=== PATIENT | male | born 2000 | race Caucasian/White ===

== ENCOUNTER → 2021-11-04 | Outpatient (CLI) | payer OTHER, SELFPAY | END | disposition home or self-care (01) | LOC: LABSPEC 09:51 | PROVIDERS: Referring Provider Physician Assistant Surgical; Visit Provider Physician Assistant Surgical | DX: R05.9 Cough, unspecified (principal) | CPT/HCPCS: 87635; U0005; U0003 ==

== ENCOUNTER 2025-09-13 16:57 | Emergency (ER) | payer SELFPAY ==
[2025-09-13 16:58] VITALS: BP 92/62; PULSE 106; RESP 18; TEMP 36.1; O2SAT 100; BMI 18.2
[2025-09-13] MEDS: 0.9% Normal Saline (1000mL) 1,000 ML 1000 ML IV ×2 (17:20→18:41)
[2025-09-13 17:31] VITALS: BP 115/45; BP 162/114; PULSE 101; PULSE 99
[2025-09-13] MEDS: Famotidine 200 MG/20 ML MDV 20 MG in 0.9% Normal Saline (Pres. free 8 ML 300 MG IV (17:46)
[2025-09-13 18:05] LABS: Anion Gap 15 (5-15); BUN 15 mg/dL (4-19); BUN/Creat Ratio 15.8 RATIO (10-20); Calcium,Total 9.9 mg/dL (7.6-11.0); Carbon Dioxide 20.6 mmol/L (21.0-32.0); Chloride 102 mmol/L (98-108); Estimated Creatinine Clearance 92.51 ml/min (50-250); Glucose 110 mg/dL (70-99); Potassium 3.8 mmol/L (3.3-5.1)
--- NOTE | 2025-09-13 18:38 | EX.ED.DYSGE1 ---
HPI History of Present Illness Chief Complaint: Nausea/Vomiting Detail of Chief Complaint: Patient presents with nausea vomiting x 12 since this morning Informant: patient Onset/Context/Timing Onset: Today and Hours Context: Sudden Onset Timing: Continuous (Nausea and dry heaves now) Quality: Nausea and vomiting started this morning. Location: GI Current Severity: Moderate Maximum Severity: Severe Worsened by: Any attempt to eat or drink anything Relieved by: Nothing Associated Symptoms Associated Symptoms: Thirst, dry mouth, orthostatic lightheadedness Narrative Narrative: Patient is a 25-year-old male. He presents with nausea vomiting started this morning. States has vomited 12 times. He denies hematemesis or coffee-ground emesis. He had no watery diarrhea. His son is ill with same. He denies fever, chills night sweats. Eyes headache, visual, ocular auditory symptoms. He denies respiratory or cardiac symptoms. He does endorse decreased urine output without having dysuria or hematuria. Prior similar symptoms: Yes Recent Illness/Hospitalization: No PFSH PFSH Home Medications ?Medication ?Instructions ?Recorded ?Last Taken ?Type NK 09/13/25 Unknown History Allergy/AdvReac Type Severity Reaction Status Date / Time amoxicillin Allergy Unknown [email or web address] Verified 11/04/21 09:32 Social History (Updated 09/13/25 @ 18:[address] Justin Zee MD) household members: spouse and children Smoking Status: Former smoker ROS ROS ED Constitutional Constitutional ED: Reports chills; Denies fever(s), subjective or sweats Eyes Eyes: Denies blurry vision or change in vision ENT ENT ED: Denies rhinorrhea or sore throat Cardiovascular Cardiovascular: Denies chest pain or palpitations Respiratory/Chest Respiratory/Chest: Denies cough, dyspnea or dyspnea on exertion Gastrointestinal Gastrointestinal: Reports abdominal pain, nausea and vomiting; Denies constipation, diarrhea or melena Genitourinary Genitourinary ED: Denies dysuria, hematuria or urinary frequency Musculoskeletal Musculoskeletal: Denies arthralgias or myalgias Integumentary Denies abscess or rash Neurologic Neurologic: Denies headache(s) or paresthesias Psychiatric Psychiatric: Denies anxiety or depression Endocrine Endocrinology: Denies cold intolerance or heat intolerance Hematologic/Lymphatic Hematologic/Lymphatic: Reports systems reviewed and no addt'l complaints, except as documented EXAM Physical Exam Const Vital Signs: 09/13/25 16:58 09/13/25 17:31 09/13/25 18:45 Temperature 96.9 F L Temperature Source Temporal Pulse Rate 106 H 91 Pulse Rate [Lying] 101 H Pulse Rate [Sitting (for 1 minute prior to obtaining)] 99 Respiratory Rate 18 16 Blood Pressure 92/62 Blood Pressure [Lying] 115/45 L Blood Pressure [Sitting (for 1 minute prior to obtaining)] 162/114 H Blood Pressure Mean 72 Blood Pressure Mean [Lying] 68 Blood Pressure Mean [Sitting (for 1 minute prior to obtaining)] 130 Pulse Ox 100 Oxygen Delivery Method Room Air 09/13/25 20:00 09/13/25 20:06 Temperature Temperature Source Pulse Rate 94 94 Pulse Rate [Lying] Pulse Rate [Sitting (for 1 minute prior to obtaining)] Respiratory Rate 20 H 22 H Blood Pressure 107/46 L Blood Pressure [Lying] Blood Pressure [Sitting (for 1 minute prior to obtaining)] Blood Pressure Mean 66 Blood Pressure Mean [Lying] Blood Pressure Mean [Sitting (for 1 minute prior to obtaining)] Pulse Ox 100 Oxygen Delivery Method Positive well nourished and well developed Constitutional Narrative: Patient is pale and ear appearing. He is tachycardic. He was hypotensive upon arrival. His orthostatic vitals are abnormal. His pressure adriel with him upright. General Appearance ED: well developed and pallor; Negative for NAD HEENT Reports dry mucous membranes HEENT Narrative: Head is atraumatic and normocephalic. Ears normal. Nares patent. Posterior pharynx is normal. Mouth ED: Yes dry mucous membranes Mouth: dry mucous membranes Eyes PERRL and EOMs intact bilaterally General Eye ED: Negative for pale conjunctiva or scleral icterus Neck no lymphadenopathy, supple and no JVD Chest Wall inspection of chest normal and palpation of chest normal Resp normal respiratory effort and clear to auscultation bilaterally Cardio regular rhythm, S1 normal heart sound, S2 normal heart sound and no murmurs Rate: tachycardic GI normal to inspection, nondistended, normoactive bowel sounds, non-distended and no masses; Negative for non-tender or hepatosplenomegaly Palpation: soft and tender other (Generalized.); Negative for guarding, splenomegaly or rebound tenderness present Back/Spine no CVA tenderness Extremity normal to inspection Extremity Narrative: There is no mottling, cyanosis or delayed capillary refill. General Extremety ED: Negative for edema or tenderness General Extremity: Negative for edema Neuro oriented x3 and CN's II-XII intact bilaterally Sensorium / Orientation: alert Psych mental status grossly normal Skin no rashes or lesions noted, no wounds and skin turgor normal General Skin Exam: jaundice and pallor; Negative for elasticity normal MDM MDM MDM Narrative Medical decision making narrative: Patient appears ill. Clinically he is dehydrated. Patient has orthostatic symptoms. IV Zofran was ordered for his nausea vomiting. Patient had emesis in his bucket and there was no evidence of coffee-ground emesis or hematemesis. Patient was Gina 1 L of normal saline wide open. History & Record Review Additional record(s) reviewed:: Prior outpatient record (Seen at urgent care October 2021. Note authored by Bryant Anderson was reviewed. He was diagnosed with URI.) Lab Data Attestation: I reviewed the patient's lab results. Lab results narrative: Basic metabolic panel reveals a mild metabolic acidosis. Anion gap is upper end of normal. BUN to creatinine ratio is approximately 16-1. Labs: Laboratory Results - last 24 hr 09/13/25 17:25 Sodium 137 Potassium 3.8 Chloride 102 Carbon Dioxide 20.6 L Anion Gap 15 BUN 15 Creatinine 0.93 Estim Creat Clear Calc 92.51 Est GFR (MDRD) Non-Af 117 BUN/Creatinine Ratio 15.8 Glucose 110 H Calcium 9.9 Treatment and Re-Evaluation :: Patient was reassessed at 183. The liter of normal saline is infused. He has no urge to urinate. He has increased in his color. He still does not appear well. He still has slight nausea. Comments:: Patient was reassessed at 2010. Patient has urge to urinate. He looks much better. He states he feels much better. He had no vomiting. Therefore we will discharge to home. 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
[2025-09-13 18:45] VITALS: PULSE 91; RESP 16
[2025-09-13 20:00] VITALS: PULSE 94; RESP 20
[2025-09-13 20:06] VITALS: BP 107/46; PULSE 94; RESP 22; O2SAT 100
[2025-09-13 20:24] VITALS: BP 107/46; PULSE 94; RESP 22; TEMP 36.6; O2SAT 100
== END 2025-09-13 20:24 | disposition home or self-care (01) ==
PROVIDERS: Emergency Provider Emergency Medicine; PCP Family Medicine; Visit Provider Emergency Medicine
DX: E86.0 Dehydration (principal); R00.0 Tachycardia, unspecified; I95.9 Hypotension, unspecified; R11.2 Nausea with vomiting, unspecified; R51.9 Headache, unspecified; Z87.891 Personal history of nicotine dependence; E87.20 Acidosis, unspecified
CPT/HCPCS: 80048; 96361; 96365; 96375; 99284; A4216; J2405